=== PATIENT | female | born 1970 | race Caucasian/White ===

== ENCOUNTER 2020-11-27 10:37 | Emergency (ER) | payer OTHER ==
[~2020-11-27] VITALS: Ht 172.7 cm; Wt 63.0 kg
--- NOTE | 2020-11-27 11:09 | NUR ---
NO ANSWER TO TRIAGE FROM [facility]
--- NOTE | 2020-11-27 11:21 | NUR ---
EKG DONE IN TRIAGE.
[2020-11-27 11:48] LABS: BASOPHILS % (AUTO) 1 % (0-1); EOSINOPHILS % (AUTO) 1 % (1-7); LYMPHOCYTES % (AUTO) 19 % (22-44); MEAN CORPUSCULAR HEMOGLOBIN 32.2 pg (27.0-34.8); MEAN CORPUSCULAR HGB CONC 34.8 g/dL (32.4-35.8); MEAN PLATELET VOLUME 7.6 fL (7.4-10.4); MONOCYTES % (AUTO) 4 % (2-9); NEUTROPHILS % (AUTO) 76 % (42-75); PLATELET COUNT 375 x10^3/uL (130-400); RED BLOOD COUNT 4.42 x10^6/uL (3.82-5.3); RED CELL DISTRIBUTION WIDTH 12.4 % (9.6-15.2)
[2020-11-27 11:57] LABS: ALANINE AMINOTRANSFERASE 52 U/L (12-78); ALBUMIN 3.9 g/dL (3.4-5.0); ANION GAP 9 mmol/L (5-15); CALCIUM 9.5 mg/dL (8.5-10.1); CHLORIDE 108 mmol/L (98-107); CREATININE 0.99 mg/dL (0.55-1.02)
[2020-11-27 11:59] LABS: ALKALINE PHOSPHATASE 76 U/L (45-117); BILIRUBIN,TOTAL 0.5 mg/dL (0.2-1.0); TOTAL PROTEIN 8.3 g/dL (6.4-8.2)
[2020-11-27] MEDS ORDERED: LEVO50TA5 PO (16:26)
[2020-11-27] MEDS ORDERED: SUMA25TA4 PO (16:26)
--- NOTE | 2020-11-27 16:26 | NUR ---
EDGE INKER HEELS: PER STRUCTURES MECHANIC BOLA AND ERP DR. RODRÍGUEZ COVID SWAB TO BE COLLECTED AND PT DISCHARED FROM TRIAGE. ASSESSMENT COMPLETED. PT A&OX4. VSS. NO URINE SAMPLE TO BE COLLECTED PER DR. RODRÍGUEZ. MD TO D/C ORDER. 50 Y/O F PRESENTS STATING "HEAVY VAGINAL BLEEDING FOR 3 DAYS, MY WHOLE OFFICE HAS COVID, SO I'VE BEEN FATIGUED, HEADACHES ON AND OFF, SORE THROAT. I WASN'T SURE IF THE BLEEDING WAS RELATED. MY LAST PERIOD WAS ABOUT 6 MONTHS AGO ON May, THEY'VE BEEN IRREGULAR, MAYBE PRE-MENOPAUSE. I'VE BEEN USING 2-3 PADS EVERY 20-30 MINUTES." VITALS REASSESSED AT DISCHARGE, STABLE. COVID SWAB COLLECTED AND WALKED TO LAB. DR. RODRÍGUEZ RE-EVALUATED PT AND DISCUSSED ALL RESULTS PRIOR TO D/C. PT AND SPOUSE GIVEN DISCHARGE INSTRUCTIONS, VERBALIZED UNDERSTANDING, HANDOUTS IN HAND. AMBULATED TO CHECKOUT DESK WITH STEADY GAIT
[2020-11-27 16:29] VITALS: BP 123/70
== END 2020-11-27 16:32 | disposition home or self-care (01) ==
LOC: ED 16:25
DX: N92.4 Excessive bleeding in the premenopausal period (principal); J02.9 Acute pharyngitis, unspecified; Z20.822 Contact with and (suspected) exposure to COVID-19; R94.31 Abnormal electrocardiogram [ECG] [EKG]; E03.9 Hypothyroidism, unspecified; G43.909 Migraine, unspecified, not intractable, without status migrainosus
CPT/HCPCS: 36415; 71045; 76830; 80053; 85025; 93005; 99285; U0003; U0005